=== PATIENT | female | born 1950 | race Caucasian/White ===

== ENCOUNTER 2020-02-15 14:08 | Outpatient (CLI) | payer MEDICARE, SELFPAY ==
--- NOTE | ~2020-02-15 | MM_ITS ---
EXAMINATION: MM screening marco antonio RT w anjelica HISTORY: Screening mammogram TECHNIQUE: Craniocaudal and mediolateral oblique 3-D tomosynthesis images were obtained and synthetic 2-D images were generated. CAD analysis was submitted and interpreted. COMPARISON: 01/21/2019 diagnostic right digital mammogram 01/07/2019, 10/07/2017 right digital screening mammogram examinations BREAST PARENCHYMAL COMPOSITION: There are scattered areas of fibroglandular density. FINDINGS: There is a biopsy marker; history of prior benign right breast biopsy. Status post left mas tectomy in 2003. There is no evidence of suspicious mass, calcification, or architectural distortion to suggest malignancy in either breast. There has been no suspicious interval change. IMPRESSION: 1. No mammographic evidence of malignancy. 2. Recommend routine screening mammography in one year. BI-RADS Category 1: Negative Reviewed, dictated and finalized at location A.
== END 2020-02-15 14:09 | disposition home or self-care (01) ==
LOC: ANHIMG 14:14
PROVIDERS: PCP Family Medicine; Visit Provider Obstetrics & Gynecology Gynecology
DX: Z12.31 Encounter for screening mammogram for malignant neoplasm of breast (principal)
CPT/HCPCS: 77063; 77067

== ENCOUNTER 2021-03-16 14:48 | Outpatient (CLI) | payer MEDICARE, SELFPAY ==
--- NOTE | ~2021-03-16 | DEXA_ITS ---
Bone Density Report Name: Rena Olmos Age: 70 Sex: Female Ethnicity: White Date of : 1950 Indication: postmenopausal; parental hip fracture; height loss; cancer; asthma or emphysema; hysterectomy; Referring Provider: KRISTINA WHEELER Study: Bone densitometry was performed. Exam Date: March 16, 2021 Accession number: [id number] Bone Density: Region BMD T-score Z-score Classification AP Spine (L1, L2, L3) 0.883 -1.2 0.9 Osteopenia Femoral Neck (Left) 0.604 -2.2 -0.4 Osteopenia Total Hip (Left) 0.795 -1.2 0.3 Osteopenia Total Hip Bilateral Avg 0.803 -1.2 0.4 Osteopenia Femoral Neck (Right) 0.621 -2.1 -0.2 Osteopenia Total Hip (Right) 0.810 -1.1 0.5 Osteopenia World Health Organization criteria for BMD impression classify patients as: Normal (T-score at or above -1.0), Osteopenia (T-score between -1.0 and -2.5), or Osteoporosis (T-score at or below -2.5). 10-year Fracture Risk(1): Major Osteoporotic Fracture 20% Hip Fracture 6.5% Reported Risk Factors: [place] (), Neck BMD=0.604, BMI=26.3, parental fracture (1) FRAX(R) Version 3.08. Fracture probability calculated for an untreated patient. Fracture probability may be lower if the patient has received treatment. Previous Exams: Region Exam Age BMD T-score BMD Change BMD Change Date g/cm2 vs Baseline vs Previous AP Spine(L1, L2, L3) 03/16/2021 70 0.883 -1.2 -0.238(-21.2%) -0.035(-3.8%)* 03/29/2019 68 0.917 -0.9 -0.203(-18.1%) 0.010(1.1%) 04/16/2016 65 0.908 -1.0 -0.213(-19.0%) -0.213(-19.0%) 12/07/2003 53 1.120 0.9 Total Hip(Left) 03/16/2021 70 0.795 -1.2 -0.078(-8.9%)# -0.037(-4.5%)* 03/29/2019 68 0.833 -0.9 -0.040(-4.6%)# 0.013(1.6%) 04/16/2016 65 0.820 -1.0 -0.053(-6.1%)# -0.053(-6.1%)# 12/07/2003 53 0.873 -0.6 Total Hip(Right) 03/16/2021 70 0.810 -1.1 -0.053(-6.1%)# -0.049(-5.7%)* 03/29/2019 68 0.859 -0.7 -0.004(-0.4%)# 0.068(8.6%)* 04/16/2016 65 0.791 -1.2 -0.072(-8.3%)# -0.072(-8.3%)# 12/07/2003 53 0.863 -0.7 *Denotes significance at 95% confidence level, LSC for AP Spine = 0.022 g/cm2, LSC for Total Hip = 0.027 g/cm2 Clinical Information Provided by Patient: Parent has had a hip fracture Has used the following medications: Vitamin D, Calcium Has the following medical conditions: Asthma or Emphysema, Cancer, Hysterectomy Patient maximum height was 68 Menopause Age: 52 No regular weight bearing exercise Drinks caffeinated beverages Onset of mense
--- NOTE | ~2021-03-16 | MM_ITS ---
EXAMINATION: MM screening marco antonio RT w anjelica HISTORY: Screening TECHNIQUE: Craniocaudal and mediolateral oblique 3-D tomosynthesis images were obtained and synthetic 2-D images were generated. CAD analysis was submitted and interpreted. COMPARISON: Comparison to multiple prior studies sequentially, with oldest reviewed study dated 04/16. BREAST PARENCHYMAL COMPOSITION: There are scattered areas of fibroglandular density. FINDINGS: There is no evidence of suspicious mass, calcification, or architectural distortion to sugg est malignancy in either breast. There has been no suspicious interval change. IMPRESSION: 1. No mammographic evidence of malignancy. 2. Recommend routine screening mammography in one year. BI-RADS Category 1: Negative Reviewed, dictated and finalized at location A.
== END 2021-03-16 14:49 | disposition home or self-care (01) ==
PROVIDERS: PCP Family Medicine; Visit Provider Nurse Practitioner
DX: Z12.31 Encounter for screening mammogram for malignant neoplasm of breast (principal); Z78.0 Asymptomatic menopausal state; M85.88 Other specified disorders of bone density and structure, other site; M85.852 Other specified disorders of bone density and structure, left thigh; M85.851 Other specified disorders of bone density and structure, right thigh
CPT/HCPCS: 77063; 77067; 77080

== ENCOUNTER 2021-04-11 02:39 | Day surgery (SDC) | payer MEDICARE, SELFPAY ==
[2021-03-29 14:39] VITALS: BMI 26.6
[2021-04-11 08:58] VITALS: BP 135/96; PULSE 101; RESP 21; TEMP 36.5; O2SAT 100; BMI 25.8
[2021-04-11] MEDS: LACTATED RINGERS 1,000 ML 150 ML IV CONT (09:05)
--- NOTE | 2021-04-11 09:17 | WPDGICN ---
Assessment and Plan Assessment and plan (1) Esophageal reflux: Code(s): K21.9 - Gastro-esophageal reflux disease without esophagitis Status: Acute Assessment and Plan: Patient has underlying GE reflux disease. Now has stopped ranitidine. Patient advised to start [id number] Pepcid once or twice a day. An EGD will be arranged electively as an outpatient. (2) Family history of colonic polyps: Code(s): Z83.71 - Family history of colonic polyps Status: Acute Assessment and Plan: Patient has a family history of colon polyps in her mother and uncle. Grandfather had colon cancer. Plan is for surveillance colonoscopy at this time. Consider follow-up exams in the future according to [employer] [employer] guidelines. GI Consult Note Consult date/time: 04/11/21 09:17 HPI: Rena Olmos is a 70 year old female Presents for screening colonoscopy. Last exam was in 2013 7 years ago. Patient reports that her grandfather had colon cancer. Previously reported that her mother had colon polyps and uncle had a malignant colon polyp removed. Patient now is somewhat uncertain about this 1st degree relative history. Patient states that her own weight appetite bowel movements are normal. She denies any abdominal pain. She has had no blood in her stools. She presents today for screening colonoscopy. Patient complains of throat burning for many years attributed to acid reflux. Previously well controlled on ranitidine. Upon stopping this medicine she has to take [id number] antacids many times a day to control this symptom. She denies any bleeding or dysphagia. She has no epigastric pain. She is felt to have underlying acid reflux disease. Review of Systems Review of Systems: All systems reviewed & are unremarkable except as noted in HPI and below [facility] Past Medical History Medical History (Updated 04/11/21 @ 09:20 by Vipin Carnes MD) Allergic rhinitis Esophageal reflux Fatigue GERD with esophagitis Family History Family History Mother Family history of cardiac disorder Family history of malignant neoplasm of breast in first degree relative Hypertension Sibling Family history of cardiac disorder Family history of malignant neoplasm of breast in first degree relative Grandparent Family history of malignant neoplasm of breast Other No family history of cardiovascular disease Social History Social History Smoking status: Never smoker Alcohol intake: never Living arrangements: alone Meds Home Medications and Allergies Home Medications Medication Instructions Recorded Confirmed Type calcium carbonate 300 mg (750 mg) 300 mg PO QID 05/11/20 03/29/21 History chewable tablet cholecalciferol (vitamin D3) 50 50 mcg PO DAILY 05/11/20 03/29/21 History mcg (2,000 unit) capsule multivit with 1 tablet PO DAILY 05/11/20 03/29/21 History yvcusdfs-qfhf-IU-lutein 8 mg iron-400 mcg-300 mcg tablet atorvastatin 10 mg tablet 10 mg PO DAILY #90 tablet 07/04/20 03/29/21 Rx alprazolam 0.25 mg tablet 1 mg PO TID #10 tablet 11/15/20 03/29/21 Rx fluticasone fur. 100 mcg-umeclid See Rx Instructions .ROUTE 11/15/20 03/29/21 Rx 62.5 mcg-vilant 25 mcg .COMPLEX #180 ea inhalat.powder alendronate 70 mg tablet 70 mg PO WEEKLY #12 tablet 03/21/21 03/29/21 Rx escitalopram oxalate 10 mg PO DAILY 03/29/21 03/29/21 History famotidine 40 mg PO PRN 03/29/21 03/29/21 History ipratropium-albuterol 1 puff INHALATION PRN 03/29/21 03/29/21 History loratadine [Claritin] 10 mg PO DAILY 03/29/21 03/29/21 History Allergies Allergy/AdvReac Type Severity Reaction Status Date / Time codeine Allergy Unknown Headache Verified 04/11/21 08:57 Vital Signs Vital Signs - 24 hr 04/11/21 08:58 Temperature 97.7 F Pulse Rate 101 H Respiratory Rate 21 H Blood
--- NOTE | 2021-04-11 09:26 | WPDANESEPPF ---
Anes - Initial Pre Proc Eval Procedure: Operation Date: 04/11/21 09:45 Proposed Procedures p Screening Colonoscopy - Vipin Carnes MD Date/Time: 04/11/21 09:26 Surgeon: Vipin Carnes MD Pre Op Diagnosis: family hx of colon polyps Patient Data Age: 70 Gender: F Height: 1.7 m Weight: 74.8 kg Last Vital Signs Temp 36.5 C 04/11/21 08:58 Pulse 101 H 04/11/21 08:58 Resp 21 H 04/11/21 08:58 BP 135/96 H 04/11/21 08:58 Pulse Ox 100 04/11/21 08:58 Allergies Allergy/AdvReac Type Severity Reaction Status Date / Time codeine Allergy Unknown Headache Verified 04/11/21 08:57 Home Medications Medication Instructions Recorded Confirmed Type calcium carbonate 300 mg (750 mg) 300 mg PO QID 05/11/20 03/29/21 History chewable tablet cholecalciferol (vitamin D3) 50 50 mcg PO DAILY 05/11/20 03/29/21 History mcg (2,000 unit) capsule multivit with 1 tablet PO DAILY 05/11/20 03/29/21 History evgddjvl-akzm-LV-lutein 8 mg iron-400 mcg-300 mcg tablet atorvastatin 10 mg tablet 10 mg PO DAILY #90 tablet 07/04/20 03/29/21 Rx alprazolam 0.25 mg tablet 1 mg PO TID #10 tablet 11/15/20 03/29/21 Rx fluticasone fur. 100 mcg-umeclid See Rx Instructions .ROUTE 11/15/20 03/29/21 Rx 62.5 mcg-vilant 25 mcg .COMPLEX #180 ea inhalat.powder alendronate 70 mg tablet 70 mg PO WEEKLY #12 tablet 03/21/21 03/29/21 Rx escitalopram oxalate 10 mg PO DAILY 03/29/21 03/29/21 History famotidine 40 mg PO PRN 03/29/21 03/29/21 History ipratropium-albuterol 1 puff INHALATION PRN 03/29/21 03/29/21 History loratadine [Claritin] 10 mg PO DAILY 03/29/21 03/29/21 History Patient hx anesthesia problems: none Family hx anesthesia problems: none PMFSH Past Medical History Medical History Allergic rhinitis Esophageal reflux Fatigue GERD with esophagitis Family History Family History Mother Family history of cardiac disorder Family history of malignant neoplasm of breast in first degree relative Hypertension Sibling Family history of cardiac disorder Family history of malignant neoplasm of breast in first degree relative Grandparent Family history of malignant neoplasm of breast Other No family history of cardiovascular disease Social History Social History Smoking status: Never smoker Alcohol intake: never Living arrangements: alone Anes - Eval Final PreProcedure Day of Procedure 04/11/21 09:26 Patient weight: overweight Heart: regular rate and rhythm Lungs: clear to auscultation Airway: Mallampati scale class II Neurological: alert and oriented Last oral intake: >/= 8 hours ASA classification: III Emergent: no Anesthetic plan: proceed Anesthesia type and monitoring: general and standard monitoring Informed Consent: The patient's anesthetic plan and its attendant risks and benefits were discussed with the patient/family/POA. Questions were solicited and answers provided to the satisfaction of the patient/family/POA.
[2021-04-11 10:00] VITALS: BP 102/57; PULSE 81; RESP 30; O2SAT 98
[2021-04-11 10:10] VITALS: BP 107/64; PULSE 85; RESP 19; O2SAT 98
[2021-04-11 10:20] VITALS: BP 113/72; PULSE 88; RESP 17; O2SAT 99
== END 2021-04-11 10:40 | disposition home or self-care (01) ==
PROVIDERS: PCP Family Medicine; Visit Provider Internal Medicine Gastroenterology
PROC: 0DJD8ZZ Inspection of Lower Intestinal Tract, Via Natural or Artificial Opening Endoscopic (ICD-10-PCS; CPT 45378; principal; 2021-04-11 09:45)
DX: Z12.11 Encounter for screening for malignant neoplasm of colon (principal); Z83.71 Family history of colonic polyps; K64.8 Other hemorrhoids; K63.5 Polyp of colon; R53.83 Other fatigue; K21.00 Gastro-esophageal reflux disease with esophagitis, without bleeding
CPT/HCPCS: 45385; 88305; J2704; J7120

== ENCOUNTER 2021-06-06 01:36 | Day surgery (SDC) | payer MEDICARE, SELFPAY ==
[2021-05-21 13:34] VITALS: BMI 26.6
--- NOTE | 2021-06-06 09:13 | WPDANESEPPF ---
Anes - Initial Pre Proc Eval Procedure: Operation Date: 06/06/21 11:00 Proposed Procedures p Esophagogastroduodenoscopy - Vipin Carnes MD Date/Time: 06/06/21 09:13 Surgeon: Vipin Carnes MD Pre Op Diagnosis: GERD Patient Data Age: 71 Gender: F Height: 1.7 m Weight: 77.2 kg Allergies Allergy/AdvReac Type Severity Reaction Status Date / Time codeine Allergy Unknown Headache Verified 05/21/21 13:28 Home Medications Medication Instructions Recorded Confirmed Type calcium carbonate 300 mg (750 mg) 300 mg PO QID 05/11/20 05/21/21 History chewable tablet cholecalciferol (vitamin D3) 50 50 mcg PO DAILY 05/11/20 05/21/21 History mcg (2,000 unit) capsule multivit with 1 tablet PO DAILY 05/11/20 05/21/21 History ibozylaz-lets-JB-lutein 8 mg iron-400 mcg-300 mcg tablet alprazolam 0.25 mg tablet 1 mg PO TID #10 tablet 11/15/20 05/21/21 Rx alendronate 70 mg tablet 70 mg PO WEEKLY #12 tablet 03/21/21 05/21/21 Rx escitalopram oxalate 10 mg PO DAILY 03/29/21 05/21/21 History famotidine 40 mg PO PRN 03/29/21 05/21/21 History ipratropium-albuterol 1 puff INHALATION PRN 03/29/21 05/21/21 History loratadine [Claritin] 10 mg PO DAILY 03/29/21 05/21/21 History atorvastatin 10 mg tablet See Rx Instructions .ROUTE 04/20/21 05/21/21 Rx .COMPLEX #90 tablet fluticasone fur. 100 mcg-umeclid See Rx Instructions .ROUTE 04/24/21 05/21/21 Rx 62.5 mcg-vilant 25 mcg .COMPLEX #180 ea inhalat.powder Patient hx anesthesia problems: none Family hx anesthesia problems: none Results Review: All pre-operative results and documents have been reviewed as part of the pre-operative evaluation. [facility] Past Medical History Medical History (Updated 06/06/21 @ 09:14 by Jan Alberto MD) Allergic rhinitis Anxiety and depression COPD mixed type Esophageal reflux Essential hypertension Fatigue GERD with esophagitis GERD without esophagitis Mixed hyperlipidemia Obstructive sleep apnea Osteopenia 7.28.21 started fosamax Overweight Family History Family History Mother Family history of cardiac disorder Family history of malignant neoplasm of breast in first degree relative Hypertension Sibling Family history of cardiac disorder Family history of malignant neoplasm of breast in first degree relative Grandparent Family history of malignant neoplasm of breast Other No family history of cardiovascular disease Social History Social History Smoking status: Never smoker Alcohol intake: never Living arrangements: alone Spiritual care concerns: No Anes - Eval Final PreProcedure Day of Procedure 06/06/21 09:13 Patient weight: overweight Heart: regular rate and rhythm Lungs: clear to auscultation and normal air movement Airway: Mallampati scale class II Neurological: alert and oriented Last oral intake: >/= 8 hours ASA classification: III Emergent: no Anesthetic plan: proceed Anesthesia type and monitoring: general GIVS Results Review: All pre-operative results and documents have been reviewed as part of the pre-operative evaluation. Informed Consent: The patient's anesthetic plan and its attendant risks and benefits were discussed with the patient/family/POA. Questions were solicited and answers provided to the satisfaction of the patient/family/POA.
[2021-06-06 09:51] VITALS: BP 132/76; PULSE 88; RESP 18; TEMP 36.1; O2SAT 100
--- NOTE | 2021-06-06 09:55 | WPDGICN ---
Assessment and Plan Assessment and plan (1) GERD without esophagitis: Code(s): K21.9 - Gastro-esophageal reflux disease without esophagitis Status: Acute Assessment and Plan: Patient has a history of substernal burning consistent with acid reflux. Symptoms. A breakthrough on Pepcid. Plan is for EGD to assess more thoroughly. She has atypical symptom of right throat pain associated with eating that [place] in is improved with Tums. Further recommendations will be given after endoscopy. GI Consult Note Consult date/time: 06/06/21 09:55 HPI: Rena Olmos is a 71 year old female Presents for EGD. Patient has a history of heartburn. Complains of substernal burning. She recently discontinued ranitidine when it was taken off the market and has been taking Pepcid. She states after eating often will have burning in the upper chest. Sometimes burning on the right side of her neck and year. This improves with supplementing medications with Tums. Because of chronic heartburn and GE reflux an EGD is requested. Patient admits to occasional difficulty swallowing solid foods which will catch in her chest. Review of Systems Review of Systems: All systems reviewed & are unremarkable except as noted in HPI and below PMFSH Past Medical History Medical History (Updated 06/06/21 @ 09:14 by Jan Alberto MD) Allergic rhinitis Anxiety and depression COPD mixed type Esophageal reflux Essential hypertension Fatigue GERD with esophagitis GERD without esophagitis Mixed hyperlipidemia Obstructive sleep apnea Osteopenia 7.28.21 started fosamax Overweight Family History Family History Mother Family history of cardiac disorder Family history of malignant neoplasm of breast in first degree relative Hypertension Sibling Family history of cardiac disorder Family history of malignant neoplasm of breast in first degree relative Grandparent Family history of malignant neoplasm of breast Other No family history of cardiovascular disease Social History Social History Smoking status: Never smoker Alcohol intake: never Living arrangements: alone Spiritual care concerns: No Meds Home Medications and Allergies Home Medications Medication Instructions Recorded Confirmed Type calcium carbonate 300 mg (750 mg) 300 mg PO QID 05/11/20 05/21/21 History chewable tablet cholecalciferol (vitamin D3) 50 50 mcg PO DAILY 05/11/20 05/21/21 History mcg (2,000 unit) capsule multivit with 1 tablet PO DAILY 05/11/20 05/21/21 History zmbimrqb-zdss-CB-lutein 8 mg iron-400 mcg-300 mcg tablet alprazolam 0.25 mg tablet 1 mg PO TID #10 tablet 11/15/20 06/06/21 Rx alendronate 70 mg tablet 70 mg PO WEEKLY #12 tablet 03/21/21 05/21/21 Rx escitalopram oxalate 10 mg PO DAILY 03/29/21 05/21/21 History famotidine 40 mg PO PRN 03/29/21 05/21/21 History ipratropium-albuterol 1 puff INHALATION PRN 03/29/21 05/21/21 History loratadine [Claritin] 10 mg PO DAILY 03/29/21 05/21/21 History atorvastatin 10 mg tablet See Rx Instructions .ROUTE 04/20/21 05/21/21 Rx .COMPLEX #90 tablet fluticasone fur. 100 mcg-umeclid See Rx Instructions .ROUTE 04/24/21 05/21/21 Rx 62.5 mcg-vilant 25 mcg .COMPLEX #180 ea inhalat.powder Allergies Allergy/AdvReac Type Severity Reaction Status Date / Time codeine Allergy Unknown Headache Verified 05/21/21 13:28 Vital Signs Vital Signs - 24 hr 06/06/21 09:51 Temperature 97 F L Pulse Rate 88 Respiratory Rate 18 Blood Pressure 132/76 Pulse Oximetry 100 Exam Narrative: Physical exam reveals patient to be alert. Vital signs stable. HEENT exam is unremarkable. Patient is anicteric. Lungs are clear to auscultation and percussion. Heart is without murmur or extra sounds. Abdominal exam bowel sounds are present soft nontender with no organomegaly. D
[2021-06-06] MEDS: LACTATED RINGERS 1,000 ML 150 ML IV CONT (10:06)
[2021-06-06 10:41] VITALS: BP 103/61; PULSE 81; RESP 16; O2SAT 97
[2021-06-06 10:51] VITALS: BP 116/61; PULSE 75; RESP 17; O2SAT 98
[2021-06-06 11:01] VITALS: BP 126/78; PULSE 78; RESP 18; O2SAT 99
== END 2021-06-06 11:22 | disposition home or self-care (01) ==
PROVIDERS: PCP Family Medicine; Visit Provider Internal Medicine Gastroenterology
PROC: 0DJ08ZZ Inspection of Upper Intestinal Tract, Via Natural or Artificial Opening Endoscopic (ICD-10-PCS; CPT 43235; principal; 2021-06-06 11:00)
DX: K21.00 Gastro-esophageal reflux disease with esophagitis, without bleeding (principal); K44.9 Diaphragmatic hernia without obstruction or gangrene; K22.2 Esophageal obstruction; I10 Essential (primary) hypertension; E78.2 Mixed hyperlipidemia; J44.9 Chronic obstructive pulmonary disease, unspecified; F41.8 Other specified anxiety disorders; G47.33 Obstructive sleep apnea (adult) (pediatric); M85.80 Other specified disorders of bone density and structure, unspecified site
CPT/HCPCS: 43450; 43235; J2704; J7120

== ENCOUNTER 2022-06-04 13:03 | Outpatient (CLI) | payer MEDICARE, SELFPAY ==
--- NOTE | ~2022-06-04 | US_ITS ---
EXAMINATION: US abdomen limited DATE: 06/04/2022 13:33 INDICATION: Epigastric abdominal pain. TECHNIQUE: Multiple grayscale and Doppler ultrasound images of the abdomen were obtained. COMPARISON: None FINDINGS: The visualized portions of the head and body of the pancreas are normal. The liver is fco l without focal lesion. There is normal flow in main portal vein. The gallbladder is normal in size a nd contains gallstones. No gallbladder wall thickening or sonographic Rouse sign. The common duct is normal and measures 3 mm. IMPRESSION: 1. Cholelithiasis. No evidence of acute cholecystitis. Reviewed, dictated and finalized at location A.
== END 2022-06-04 13:04 | disposition home or self-care (01) ==
LOC: ANHIMG 13:04
PROVIDERS: PCP Family Medicine; Visit Provider Physician Assistant
DX: R10.13 Epigastric pain (principal); K80.20 Calculus of gallbladder without cholecystitis without obstruction
CPT/HCPCS: 76705

== ENCOUNTER 2022-06-17 12:44 | Outpatient (CLI) | payer MEDICARE, SELFPAY ==
[2022-06-17 14:00] LABS: Basophils Percent Auto 0.8 % (0.2-1.2); Eosinophils Percent Auto 0.8 % (0-4.4); Hematocrit 43.2 % (37.0-47.0); Hemoglobin 14.2 g/dL (12.0-15.0); Immature Granulocyte Absolute 0.01 K/mm3 (0.00-0.031); Immature Granulocyte Percent A 0.2 % (0-0.5); Lymphocytes Absolute Auto 1.05 K/mm3 (0.9-3.2); Lymphocytes Percent Auto 22.2 % (18.3-44.2); Mean Corpuscular HGB Conc 32.9 g/dl (32-36); Mean Corpuscular Volume 88.2 fl (80-100); Mean Platelet Volume 9.6 fl (7.4-10.4); Monocytes Absolute Auto 0.4 K/mm3 (0.1-0.6); Monocytes Percent Auto 8.5 % (2.6-8.5); Neutrophils Absolute Auto 3.2 K/mm3 (1.3-6.7); Neutrophils Percent Auto 67.5 % (45.5-73.1); Platelet Count Result 207 k/mm3 (150-375); Red Cell Distribution Width 13.1 % (11.5-14.5); White Blood Count 4.7 K/mm3 (4.5-10.0)
[2022-06-17 14:15] LABS: Alanine Aminotransferase 39 U/L (6-35); Albumin Level 4.4 g/dL (3.5-5.1); Alkaline Phosphatase 48 U/L (38-126); Amylase 74 U/L (30-110); Anion Gap 10 mmol/L (8-16); Aspartate Amino Transferase 45 U/L (14-36); Bilirubin,Total 0.9 mg/dL (0.2-1.3); Blood Urea Nitrogen 18 mg/dL (7-17); Calcium 9.1 mg/dL (8.4-10.2); Carbon Dioxide 26 mmol/L (22-30); Chloride 104 mmol/L (98-107); Estimated Glomerular Filt Rate 55; Glucose 92 mg/dL (65-110); Lipase 134 U/L (23-300); Potassium 4.1 mmol/L (3.4-5.0); Sodium 140 mmol/L (137-145)
== END 2022-06-17 12:45 | disposition home or self-care (01) ==
LOC: ANHSURGERY 12:51
PROVIDERS: PCP Family Medicine; Visit Provider Surgery
DX: K80.10 Calculus of gallbladder with chronic cholecystitis without obstruction (principal)
CPT/HCPCS: 36415; 80053; 82150; 83690; 85025

== ENCOUNTER 2022-07-02 10:00 | Outpatient (CLI) | payer MEDICARE, SELFPAY ==
--- NOTE | 2022-07-02 10:07 | EST_ITS ---
Patient Info Name: Rena Olmos Age: 72 years : 1950 Gender: Female Ht: 67 in Wt: 165 lbs BSA: 1.89 m2 Exam Date: 07/02/2022 10:53 AM Exam Location: [facility] Patient Status: Outpatient Admit Date: 07/02/2022 Staff Ordering Physician: Cuate Gamino PA-C Grinder Operator External Tool: Hank Rouse RDCS, RT Attending Provider: Cuate Gamino PA-C Referring Physician: Stevenson RIVERA; Exercise Technologist: Kavita Irving RDCS Exercise Physician: Urbano Gasca DO Exam Type: CA stress echo Study Info Indications R07.9 - Chest pain, unspecified Treadmill exercise stress echocardiogram is performed. Summary 1. 1. Negative [place]ar exercise stress test for ischemic ST changes by ECG criteria. 2. 2. Reduced functional capacity, achieving 6.8 METs of workload. 3. 3. Appropriate HR response to exercise. 4. 4. Appropriate HR recovery at 1 minute post exercise. 5. 5. Negative stress echocardiogram for ischemia by wall motion analysis. 6. 6. Patient informed of the above results. Stress Echo Findings Left Ventricle Appropriate increase in LV endocardial thickening with systole. Appropriate augmentation of contractility with systole. No wall motion abnormality. Left Ventricle Normal LV systolic function, no wall motion abnormality. Protocol: [place] Stress ECG Details Stage: REST Duration (min): 0 min : 50 sec Speed (mph): 0.0 Grade (%): 0 HR (bpm): 72 SBP (mmHg): 136 DBP (mmHg): 86 METS: --- Stage: REST Duration (min): 7 min : 29 sec Speed (mph): 0.0 Grade (%): 0 HR (bpm): 90 SBP (mmHg): 136 DBP (mmHg): 86 METS: --- Stage: STAGE 1 Duration (min): 1 min : 0 sec Speed (mph): 1.7 Grade (%): 10 HR (bpm): 107 SBP (mmHg): 136 DBP (mmHg): 86 METS: --- Stage: STAGE 1 Duration (min): 2 min : 0 sec Speed (mph): 1.7 Grade (%): 10 HR (bpm): 125 SBP (mmHg): 136 DBP (mmHg): 86 METS: --- Stage: STAGE 1 Duration (min): 3 min : 0 sec Speed (mph): 1.7 Grade (%): 10 HR (bpm): 134 SBP (mmHg): 165 DBP (mmHg): 80 METS: --- Stage: STAGE 2 Duration (min): 1 min : 0 sec Speed (mph): 2.5 Grade (%): 12 HR (bpm): 145 SBP (mmHg): 165 DBP (mmHg): 80 METS: --- Stage: STAGE 2 Duration (min): 1 min : 16 sec Speed (mph): 0.0 Grade (%): 0 HR (bpm): 145 SBP (mmHg): 165 DBP (mmHg): 80 METS: --- Stage: RECOVERY Duration (min): 0 min : 43 sec Speed (mph): 0.0 Grade (%): 0 HR (bpm): 126 SBP (mmHg): 165 DBP (mmHg): 84 METS: --- Stage: RECOVERY Duration (min): 1 min : 43 sec Speed (mph): 0.0 Grade (%): 0 HR (bpm): 99 SBP (mmHg): 165 DBP (mmHg): 84 METS: --- Stage: RECOVERY Duration (min): 2 min : 43 sec Speed (mph): 0.0 Grade (%): 0 HR (bpm): 86 SBP (mmHg): 139 DBP (mmHg): 77 METS: --- Stage: RECOVERY Duration (min): 3 min : 8 sec Speed (mph): 0.0 Grade (
== END 2022-07-02 10:01 | disposition home or self-care (01) ==
LOC: ANHCARD 10:03
PROVIDERS: PCP Family Medicine; Visit Provider Physician Assistant
DX: R07.9 Chest pain, unspecified (principal)
CPT/HCPCS: 93351

== ENCOUNTER 2022-07-15 10:21 | Outpatient (CLI) | payer MEDICARE, SELFPAY ==
[2022-07-15 11:31] LABS: Alanine Aminotransferase 28 U/L (6-35); Albumin Level 4.3 g/dL (3.5-5.1); Alkaline Phosphatase 44 U/L (38-126); Amylase 71 U/L (30-110); Aspartate Amino Transferase 37 U/L (14-36); Bilirubin,Total 0.5 mg/dL (0.2-1.3); Lipase 103 U/L (23-300)
== END 2022-07-15 10:22 | disposition home or self-care (01) ==
LOC: ANHSURGERY 10:24
PROVIDERS: PCP Family Medicine; Visit Provider Surgery
DX: K80.20 Calculus of gallbladder without cholecystitis without obstruction (principal); Z01.818 Encounter for other preprocedural examination
CPT/HCPCS: 36415; 80076; 82150; 83690

== ENCOUNTER 2022-07-23 01:21 | Day surgery (SDC) | payer MEDICARE, SELFPAY ==
[2022-06-13 14:01] VITALS: BMI 26.6
--- NOTE | 2022-06-13 14:16 | PC.NURSE ---
PRE-OP INSTRUCTIONS, PLEASE READ CAREFULLY Report to the Outpatient Waiting Room, entrance under the green pavilion located off [facility], at time _1130_ on date __. Planned Procedure Time: _1:30 PM_. Time changes happen often and if your time is changed the preop area will call you the afternoon before. - You and your visitor will be asked to self-screen and do not enter if you have any COVID symptoms. - We encourage only one visitor and NO visitors under age 16 are allowed at this time. Your visitor will receive communication by the phone number that is given day of service. - The patient visitor is requested to social distance or may leave the building when not with patient due to restrictions. - A mask is required within the hospital. Patients may have clear liquids (water, carbonated beverages, clear teas, apple juice) until 3 hours prior to surgery (1030 AM) with a maximum of 20 ounces. - No food from midnight until time of surgery Take the following medications with a SIP of water the morning of surgery: _ALPRAZOLAM, VENTOLIN INHALER IF NEEDED_ Medications to discontinue per ANESTHESIA - MULTIVITAMIN 3 DAYS PRIOR TO SURGERY, Date to take last dose 06/15/22_ PT STATES ALREADY STOPPING ASPIRIN - LAST DOSE TAKEN 06/09/22 Please no make-up, nail korean, hairspray, perfume, deodorant, or body powder the day of surgery. No jewelry (including any body piercings) or valuables the day of surgery, leave them at home. Please take a shower or bath the night before, or the morning of, surgery with an antibacterial soap. Wear comfortable, loose fitting clothing. - Jewelry must be removed prior to entering the operating room. Rings and piercings that are not removed may be cut off. - The hospital will not accept responsibility for valuables. - Please leave all valuables, including medications, at home the day of surgery. If you are going home after surgery, a licensed rolloff truck driver must drive you home. - NO public transportation without another adult. - We recommend that an adult stay with you for 24 hours following discharge. - We also recommend that you do not drive, make important decision, drink alcoholic beverages, or take any drugs that were not prescribed by your health care provider for at least 24 hours after your discharge time. Follow any additional instructions given to you from your surgeon. HIBICLENS SHOWER AM OF SURGERY If you or anyone in your household have experienced Covid symptoms in the past week, please notify your surgeon or the nurse liaison at the phone number below for possible testing. Telephone instructions given to ___PT and asked if any additional questions and then verbalized understanding. Patient advised to call surgeon office or pre surgery nurse liaison [phone] if any additional questions.
[2022-07-12 14:41] VITALS: BMI 26.6
--- NOTE | 2022-07-12 14:54 | PC.NURSE ---
PRE-OP INSTRUCTIONS, PLEASE READ CAREFULLY Report to the Outpatient Waiting Room, entrance under the green pavilion located off [facility], at time _1000_ on date _07/23/22_. Planned Procedure Time: _1200_. Time changes happen often and if your time is changed the preop area will call you the afternoon before. - You and your visitor will be asked to self-screen and do not enter if you have any COVID symptoms. - Only one visitor is requested with a max of two and NO children visitors are allowed at this time. - The patient visitor may be requested to leave or wait in car when not with patient due to distancing restrictions. - A mask is optional within the hospital. Patients may have clear liquids (water, carbonated beverages, clear teas, apple juice) until 3 hours prior to surgery (0900 AM) with a maximum of 20 ounces. - No food from midnight until time of surgery Take the following medications with a SIP of water the morning of surgery: _ALPRAZOLAM, VENTOLIN INHALER IF NEEDED_ Medications to discontinue per ANESTHESIA - _MULTIVITAMIN 3 DAYS PRIOR TO SURGERY, Date to take last dose 07/19/22_ (PT STATES STOPPING ASPIRIN 06/09/22 & NOT RESTARTING WHEN SURGERY PREVIOUSLY CANCELLED) Please no make-up, nail algerian, hairspray, perfume, deodorant, or body powder the day of surgery. No jewelry (including any body piercings) or valuables the day of surgery, leave them at home. Please take a shower or bath the night before, or the morning of, surgery with an antibacterial soap. Wear comfortable, loose fitting clothing. - Jewelry must be removed prior to entering the operating room. Rings and piercings that are not removed may be cut off. - The hospital will not accept responsibility for valuables. - Please leave all valuables, including medications, at home the day of surgery. If you are going home after surgery, a licensed road driver must drive you home. - NO public transportation without another adult if you receive anesthesia. - We recommend that an adult stay with you for 24 hours following discharge. - We also recommend that you do not drive, make important decision, drink alcoholic beverages, or take any drugs that were not prescribed by your health care provider for at least 24 hours after your discharge time. Follow any additional instructions given to you from your surgeon. HIBICLENS SHOWER AM OF SURGERY If you or anyone in your household have experienced Covid symptoms in the past week, please notify your surgeon or the nurse liaison at the phone number below for possible testing. Telephone instructions given to ____PT and asked if any additional questions and then verbalized understanding. Patient advised to call surgeon office or pre surgery nurse liaison [phone] if any additional questions.
[2022-07-23] VITALS (11 sets, daily range): BP systolic 122–139; BP diastolic 62–76; PULSE 66–99; RESP 12–16; TEMP 36.6–36.9; O2SAT 96–100
--- NOTE | 2022-07-23 07:07 | PM.HPGS ---
History of Present Illness History of Present Illness Consent: Risks, benefits, and alternatives Of a laparoscopic cholecystectomy, possible intraoperative cholangiogram, possible open cholecystectomy have been discussed and questions answered. Patient agrees to proceed with procedure. Chief complaint: chronic cholecystitis with cholelithiasis Narrative: Rena Olmos is a 72 year old female that recently presented to the office at the request of Cuate Gamino PA-C for an evaluation of epigastric pain and heartburn. Patient reports that her symptoms started about two months ago and she seems to just have random episodes of this pain that wake her from her sleep. She reports that when she has an episode of pain it is sharp and radiates throughout her upper abdomen. She reports the episodes last about an hour to an hour and a half. She knows that with one of the episodes she had a salad for dinner. She reports that she had used an oil dressing. She did not take any thing for the pain while she was having the episodes. She does not eat fried foods but she does admits she eats fatty foods. She reports she has not had an episodes since her ultrasound. Patient had an abdominal ultrasound on 06/04/22 that showed cholelithiasis. No evidence of acute cholecystitis. Patient has a history of left breast cancer where she had a mastectomy. Only other surgical history includes a hysterectomy in 2019.? She does take daily medication for COPD, she denies a smoking history. She does not see a licensed audiologist, she reports that her COPD is controlled and is treated by her PCP. Review of Systems Constitutional: Comments: Review of Systems Const All systems reviewed & are unremarkable except as noted in HPI and below Denies frequent falls, Denies headache(s) and Reports snoring Eyes Denies blurry vision, Denies itchy eyes, Denies photophobia and Denies spots in vision ENT Reports Normal hearing present, Denies headache(s) and Reports sinus pressure Card Reports dyspnea Resp Reports dyspnea and Reports snoring, mild COPD, and sleep apnea GI Reports constipation and Reports heartburn, history of GERD. Musc Denies abnormal gait and Denies back pain Skin/ Breast Denies new lesions, Denies rash and Denies wounds. Has history of previous left breast cancer status post left mastectomy Neuro Reports Normal hearing present, Denies abnormal gait, Denies confusion, Denies frequent falls, Denies headache(s), Denies convulsions and Denies seizure-like activity Psych Denies confusion and Denies depression Endo Denies cold intolerance and Denies heat intolerance Leonard/ Lymph Denies easy bleeding, Denies easy bruising and Denies lymphadenopathy Aller/ Immun Denies itchy eyes and Reports seasonal rhinorrhea PMFSH Past Medical History Medical History Allergic rhinitis Anxiety and depression COPD mixed type Essential hypertension Fatigue GERD with esophagitis GERD without esophagitis Mixed hyperlipidemia Obstructive sleep apnea Osteopenia 7.28.21 started fosamax Overweight Surgical History Surgical History H/O total mastectomy of right breast History of hysterectomy Family History Family History Mother Family history of cardiac disorder Family history of malignant neoplasm of breast in first degree relative Hypertension Sibling Family history of cardiac disorder Family history of malignant neoplasm of breast in first degree relative Grandparent Family history of malignant neoplasm of breast Other No family history of cardiovascular disease Social History Social History Smoking status: Never smoker Second hand tobacco smoke exposure: No Alcohol intake: never Substance use: never Substance use type: does not use Living
[2022-07-23] MEDS: ACETAMINOPHEN 500 MG TABLET 1000 MG PO (10:04)
[2022-07-23] MEDS: LACTATED RINGERS 1,000 ML 30 ML IV CONT ×3 (10:44→14:50)
[2022-07-23] MEDS: KETOROLAC 15 MG/ML VIAL (*BKC) IV PUSH (10:46)
--- NOTE | 2022-07-23 12:03 | WPDANESEPPF ---
Anes - Initial Pre Proc Eval Procedure: Operation Date: 07/23/22 12:00 Proposed Procedures p Laparoscopic Cholecystectomy, Possible Intraoperative Cholangiogram, Possible Open - Justyn Crump MD Date/Time: 07/23/22 12:03 Surgeon: Justyn Crump MD Pre Op Diagnosis: chronic cholecystitis with cholelithiasis Patient Data Age: 72 Gender: F Height: 1.7 m Weight: 74.2 kg Last Vital Signs Temp 36.6 C 07/23/22 10:15 Pulse 82 07/23/22 10:15 Resp 16 07/23/22 10:15 BP 136/76 07/23/22 10:15 Pulse Ox 98 07/23/22 10:15 O2 Del Method Room Air 07/23/22 10:15 Allergies Allergy/AdvReac Type Severity Reaction Status Date / Time omeprazole AdvReac Intermediate diarrhea Verified 07/23/22 09:59 codeine AdvReac Unknown Headache Verified 07/23/22 09:59 Home Medications Medication Instructions Recorded Confirmed Type calcium carbonate 300 mg (750 mg) 300 mg PO QID 05/11/20 07/23/22 History chewable tablet (Tums) cholecalciferol (vitamin D3) 50 50 mcg PO DAILY 05/11/20 07/23/22 History mcg (2,000 unit) capsule multivit with 1 tablet PO DAILY 05/11/20 07/23/22 History idrlazco-uhtr-HU-lutein 8 mg iron-400 mcg-300 mcg tablet (Centrum Silver Women) loratadine 10 mg tablet (Claritin) 10 mg PO DAILY 03/29/21 07/23/22 History atorvastatin 10 mg tablet See Rx Instructions .Route 08/02/21 07/23/22 Rx .COMPLEX #90 tabs albuterol sulfate 90 mcg/actuation 2 puff inhalation Q4H PRN 09/21/21 07/23/22 Rx aerosol inhaler (Ventolin HFA) shortness of breath or wheezing #6.7 grams escitalopram oxalate 10 mg tablet 10 mg PO DAILY #90 tabs 09/21/21 07/23/22 Rx alendronate 70 mg tablet See Rx Instructions .Route 05/02/22 07/23/22 Rx .COMPLEX #12 tabs alprazolam 0.25 mg tablet 0.25 mg PO DAILY PRN anxiety #10 05/14/22 07/23/22 Rx tabs aspirin 500 mg tablet 500 mg PO DAILY PRN Pain 05/14/22 07/23/22 History guaifenesin 600 mg tablet, 600 mg PO Q12H PRN Congestion 05/14/22 07/23/22 History extended release 12 hr (Mucinex) fluticasone fur. 100 mcg-umeclid See Rx Instructions .Route 05/30/22 07/23/22 Rx 62.5 mcg-vilant 25 mcg .COMPLEX #180 blisters inhalat.powder (Trelegy Ellipta) Patient hx anesthesia problems: none Family hx anesthesia problems: none Results Review: All pre-operative results and documents have been reviewed as part of the pre-operative evaluation. [facility] Past Medical History Medical History Allergic rhinitis Anxiety and depression COPD mixed type Essential hypertension Fatigue GERD with esophagitis GERD without esophagitis Mixed hyperlipidemia Obstructive sleep apnea Osteopenia 7.28.21 started fosamax Overweight Surgical History Surgical History H/O total mastectomy of right breast History of hysterectomy Family History Family History Mother Family history of cardiac disorder Family history of malignant neoplasm of breast in first degree relative Hypertension Sibling Family history of cardiac disorder Family history of malignant neoplasm of breast in first degree relative Grandparent Family history of malignant neoplasm of breast Other No family history of cardiovascular disease Social History Social History Smoking status: Never smoker Second hand tobacco smoke exposure: No Alcohol intake: never Substance use: never Substance use type: does not use Living arrangements: alone Spiritual care concerns: No Anes - Eval Final PreProcedure Day of Procedure 07/23/22 12:03 Patient weight: normal Heart: regular rate and rhythm Lungs: clear to auscultation and normal air movement Airway: Mallampati scale class II Neurological: alert and oriented Last oral intake: >/= 8 hours ASA classif
[2022-07-23] MEDS: ceFAZolin 2 GM/D5W 50 ML 2 GM/50 ML BAG IVPB (12:13)
--- NOTE | 2022-07-23 14:40 | W.PM.PROC2 ---
Procedure Note - Detailed Date of Procedure 07/23/22 Pre-op Diagnosis 1. chronic cholecystitis with cholelithiasis 2. Skin lesions of the abdomen Post-op Diagnosis Same Procedure Performed Laproscopic Cholecystectomy Surgeon Justyn Crump MD Instructor Ballroom Dancing Meagan HAWKINS.OR first sampler Anesthesia General Indications Patient has been having intermittent right upper quadrant pain. An ultrasound showed gallstones without acute cholecystitis. (see H&P for further details). Findings 1. Dark flat irregular nevus epigastrium 2. Suspected hemangioma at port site 3. Elongated gallbladder with stones without obvious acute inflammation. Description of Procedure Patient was seen preoperatively in the holding area and risks, benefits and alternatives confirmed. Patient was taken to the operating room and general anesthesia was induced. A time out was then preformed with the surgery team confirming patient and site of surgery. The abdomen was prepped and draped in the usual sterile fashion. Incision was made just below the umbilicus with an 11 blade knife. I placed 2 stay sutures of O- Vicryl on either side of the mid-line fascia beneath the umbilicus and was then able to slide in the Davison cannula through the fascial defect into the peritoneum. First under low flow and then under high flow the abdomen was insufflated with carbon dioxide never exceeding a pressure of 14. Three 5 mm trocars were then introduced under direct vision. At the sites where I planned to place the 5 mm trocars in the epigastrium and in the mid right upper quadrant there were skin lesions which the patient had preoperatively asked me to remove if they were at the sites where ports would be needed. Therefore, elliptical excision with a 15 blade knife of an epigastric apparent nevus was completed. Separately in the mid right upper quadrant elliptical excision transversely of a red skin lesion suspected to be a hemangioma was also completed. Trocars were then placed through these incisions. The following trocars were introduced under direct vision: a 5 mm in the epigastrium and two 5 mm trocars along the right costal margin laterally in the subcostal area. There were not any adhesions to the underside of the gallbladder. I then carefully used the L-shaped cautery and the [place] dissector to dissect out the triangle of Calot. I then was able to dissect out both the cystic duct and cystic artery and identify a window of safety. The gall bladder was grasped and the cystic duct and artery were dissected free and clipped with an 5 mm endo-clip call center supervisor. The cystic duct and artery were clipped with use of 2 clips on the patient's side 1 on the gallbladder side utilizing a 5 mm endoclip-call center supervisor. The cystic duct was then transected. The cystic artery was also transected at this point. The gall bladder was removed using electrocautery and then removed from the abdomen using an endobag. Has I was dissecting up the lateral side of the gallbladder we developed some bleeding from the liver parenchyma in that area. This was cauterized several times but still has significant bleeding so therefore pressure was applied to it for a while while we removed the gallbladder. When we looked back it appeared that the bleeding had stopped but I still put a small piece of Surgicel right in the area of the gallbladder bed where the bleeding had been. I suctioned away the rest of the blood clot and bloody fluid after irrigating in the right upper quadrant there was minimal blood left behind at the time of closure. The GB in the endobag was able to be removed without a lot of tension through the umbilical incision site. There was at least 1 small stone palpable within the gallbladder after removal. The trocars were removed visualizing hemostasis and the remaining gas evacuated. The large trocar site at the umbilicus was closed with use of the 2 stay sutures of 0 Vicryl mentioned above and also a figure of 8 O-Vicry
== END 2022-07-23 17:40 | disposition home or self-care (01) ==
PROVIDERS: PCP Family Medicine; Visit Provider Surgery
PROC: 0FT44ZZ Resection of Gallbladder, Percutaneous Endoscopic Approach (ICD-10-PCS; CPT 47562; principal; 2022-07-23 12:00)
DX: K80.10 Calculus of gallbladder with chronic cholecystitis without obstruction (principal); D22.5 Melanocytic nevi of trunk; D18.01 Hemangioma of skin and subcutaneous tissue; D13.5 Benign neoplasm of extrahepatic bile ducts; I10 Essential (primary) hypertension; J44.9 Chronic obstructive pulmonary disease, unspecified; G47.33 Obstructive sleep apnea (adult) (pediatric); E78.2 Mixed hyperlipidemia; K21.9 Gastro-esophageal reflux disease without esophagitis; F41.8 Other specified anxiety disorders; M85.80 Other specified disorders of bone density and structure, unspecified site; Z79.51 Long term (current) use of inhaled steroids; Z79.82 Long term (current) use of aspirin; Z85.3 Personal history of malignant neoplasm of breast
CPT/HCPCS: 47562; 11401 ×2; 88304; 88305; A9270; J0690; J1100; J1200; J1885; J2405; J2704; J3010; J7030; J7120

== ENCOUNTER 2022-08-06 14:43 | Outpatient (CLI) | payer MEDICARE, SELFPAY ==
--- NOTE | ~2022-08-06 | MM_ITS ---
EXAMINATION: MM screening marco antonio RT w anjelica HISTORY: Screening. Status post left mastectomy. TECHNIQUE: Craniocaudal and mediolateral oblique 3-D tomosynthesis images were obtained and synthetic 2-D images were generated. CAD analysis was submitted and interpreted. COMPARISON: Comparison to multiple prior studies sequentially, with oldest reviewed study dated 10/07. BREAST PARENCHYMAL COMPOSITION: Breast composed of scattered areas of fibroglandular density FINDINGS: There are focal asymmetries medially on CC view and superiorly and inferiorly on MLO view. No discrete mass identified. There are no suspicious calcifications. IMPRESSION: 1. New right breast asymmetries. 2. Additional mammographic views and possible breast ultrasound are recommended. BI-RADS Category 0: Incomplete: Needs additional imaging evaluation. Reviewed, dictated and finalized at location B. [place] ZONE SPECIALIST IMPRESSION: 1. New right breast asymmetries. 2. Additional mammographic views and possible breast ultrasound are recommended . BI-RADS Category 0: Incomplete: Needs additional imaging evaluation.
== END 2022-08-06 14:44 | disposition home or self-care (01) ==
PROVIDERS: PCP Family Medicine; Visit Provider Obstetrics & Gynecology Gynecology
DX: Z12.31 Encounter for screening mammogram for malignant neoplasm of breast (principal); R92.8 Other abnormal and inconclusive findings on diagnostic imaging of breast
CPT/HCPCS: 77063; 77067

== ENCOUNTER 2022-08-09 11:16 | Outpatient (CLI) | payer MEDICARE, SELFPAY ==
--- NOTE | ~2022-08-09 | MMUS_ITS ---
EXAMINATION: MM diagnostic marco antonio RT w anjelica, US breast RT complete HISTORY: Follow-up right breast asymmetry. TECHNIQUE: Additional 3-D tomosynthesis images of the right breast were performed and synthetic 2-D i mages were generated. CAD analysis was submitted and interpreted. High resolution complete right allan st ultrasound was performed. COMPARISON: Comparison to multiple prior studies sequentially, with oldest reviewed study dated 04/16. BREAST PARENCHYMAL COMPOSITION: Breast composed of scattered areas of fibroglandular density FINDINGS: MAMMOGRAPHIC FINDINGS: No discrete mass is identified. Focal asymmetry medially in the right breast on CC view is less appar ent with spot compression views, most likely superimposed fibroglandular tissue. ULTRASOUND: Complete US of all 4 quadrants of the right breast and retroareolar region was reviewed. Normal heter ogeneous echotexture without focal solid or cystic mass. IMPRESSION: 1. Probable benign focal asymmetry medially in the right breast on CC view. No sonographic correlate. 2. Recommend 6 month follow-up diagnostic right mammogram BI-RADS category 3, probably benign findings. Reviewed, dictated and finalized at location B. KER OUT IMPRESSION: 1. Probable benign focal asymmetry medially in the right breast on CC view. No sonographic correlate. 2. Recommend 6 month follow-up diagnostic right mammogram BI-RADS category 3, probably benign findings.
== END 2022-08-09 11:17 | disposition home or self-care (01) ==
LOC: ANHIMG 11:17
PROVIDERS: PCP Family Medicine; Visit Provider Obstetrics & Gynecology Gynecology
DX: R92.8 Other abnormal and inconclusive findings on diagnostic imaging of breast (principal)
CPT/HCPCS: 76641; 77061; 77065; G0279

== ENCOUNTER → 2022-10-17 12:36 | Outpatient (CLI) | payer MEDICARE, SELFPAY ==
--- NOTE | ~2022-10-17 | CT_ITS ---
EXAMINATION: CT abdomen pelvis wo/w con DATE: 10/17/2022 13:37 INDICATION: Gross hematuria TECHNIQUE: Computed tomography (CT) of the abdomen and pelvis was performed without intravenous contr ast. CT of the abdomen and pelvis was then performed with a total of 130 mL Omnipaque-350 intravenous contrast using a double-bolus technique for simultaneous opacification of the renal parenchyma and r enal collecting system. Automated exposure control and iterative reconstruction technique were employ ed. The dose-length product was 1369.80 mGy-cm. COMPARISON: None FINDINGS: Lung bases are clear. No pleural effusion. Heart size is normal. Small pericardial effusion. Small sl iding-type hiatal hernia. The visualized left breast implant. A few scattered small hepatic and splen ic calcification consistent with old granulomatous disease. A few scattered hepatic cysts the largest measuring 2 cm in the left hepatic lobe. Cholecystectomy clips at the gallbladder fossa. No urolithi asis. Symmetric renal parenchymal enhancement with a couple bilateral subcentimeter low-attenuation r enal cysts. Bilateral renal collecting systems and ureters are both opacified in their entirety and d emonstrate no urothelial irregularities or filling defects. Bladder is normal. The uterus is not iden tified and has likely been surgically resected. Bowels including the appendix are normal. No free int raperitoneal gas or fluid. No pathologically enlarged abdominal or pelvic lymphadenopathy. Lumbar lev oscoliosis with moderate to severe lumbar spondylosis. Osteitis pubis. There are few scattered small sclerotic bone islands in the spine and pelvis. IMPRESSION: 1. No etiology for reported gross hematuria. No urolithiasis or concerning renal, ureteral or bladder lesions. Reviewed, dictated and finalized at location A. ATION MONITOR IMPRESSION: 1. No etiology for reported gross hematuria. No urolithiasis or concerning jena l, ureteral or bladder lesions.
[2022-10-17 13:12] LABS: Estimated Glomerular Filt Rate > 60
== END ==
PROVIDERS: PCP Family Medicine; Visit Provider Physician Assistant
DX: R31.0 Gross hematuria (principal)
CPT/HCPCS: 74178; Q9967

== ENCOUNTER 2023-01-24 11:31 | Emergency (ER) | payer MEDICARE, SELFPAY ==
[2023-01-24 11:40] VITALS: BP 132/79; PULSE 89; RESP 16; TEMP 36.7; O2SAT 100
--- NOTE | 2023-01-24 11:41 | ED.EYEPROB ---
HPI - Eye Problem General Chief complaint: Eye Problems Stated complaint: Left Eye Problem Source: patient and RN notes reviewed Limitations: no limitations History of Present Illness HPI Narrative: Patient is a 72-year-old female with complaints left eye pain and redness upon waking. Patient states that when she woke up this morning she noted a small yellow bump in her eye with something in the center. States that she applied a warm compress, and the bump went away. Patient states that she was gardening last night, and felt as if she had gotten something in her eye. She presents with erythema to her left sclera. She reports mild visual disturbance at times with mild blurriness. She reports pain around the left eye. Related Data Home Medications Medication Instructions Recorded Confirmed calcium carbonate 300 mg (750 mg) 300 mg PO QID 05/11/20 01/24/23 chewable tablet (Tums) cholecalciferol (vitamin D3) 50 50 mcg PO DAILY 05/11/20 01/24/23 mcg (2,000 unit) capsule multivit with 1 tablet PO DAILY 05/11/20 01/24/23 zxgssnaw-eifl-YH-lutein 8 mg iron-400 mcg-300 mcg tablet (Centrum Silver Women) aspirin 500 mg tablet 500 mg PO DAILY PRN Pain 05/14/22 01/24/23 Allergies Allergy/AdvReac Type Severity Reaction Status Date / Time omeprazole AdvReac Intermediate diarrhea Verified 01/24/23 11:41 codeine AdvReac Unknown Headache Verified 01/24/23 11:41 Review of Systems Review of Systems: CONSTITUTIONAL: Denies fever, chills, or sweats. EYES: Reports left eye redness, pain, and tearing. ENT: Denies otalgia and sore throat CARDIOVASCULAR: Denies chest pain, palpitations, or edema. RESPIRATORY: Denies cough or dyspnea. GASTROINTESTINAL: Denies abdominal pain, nausea, vomiting, or diarrhea. GENITOURINARY: Denies dysuria or hematuria. SKIN: Denies rash or itching. MUSCULOSKELETAL: Denies back pain, joint pain, or myalgia. NEUROLOGIC: Denies headache, numbness, or weakness. Pertinent positives per HPI. [facility] Past Medical History Medical History Allergic rhinitis Anxiety and depression COPD mixed type Essential hypertension Fatigue GERD with esophagitis GERD without esophagitis Mixed hyperlipidemia Obstructive sleep apnea 12.16.19 sleep study Osteopenia 7.28.21 started fosamax Overweight Surgical History Surgical History H/O total mastectomy of right breast History of cholecystectomy laparoscopic cholecystectomy 07/23/22 History of hysterectomy Family History Family History Mother Family history of cardiac disorder Family history of malignant neoplasm of breast in first degree relative Hypertension Sibling Family history of cardiac disorder Family history of malignant neoplasm of breast in first degree relative Grandparent Family history of malignant neoplasm of breast Other No family history of cardiovascular disease Social History Social History Smoking status: Never smoker Second hand tobacco smoke exposure: No Alcohol intake: never Substance use: never Substance use type: does not use Lack of Transportation: No Lack of Food: Never True Current Housing: I Have Housing Concerned About Future Housing: No Difficulty Paying Gas/Electric Bills: No Difficulty Paying for Meds: No Currently Unemployed: No Education: High School Diploma/GED Difficulty w/ Childcare or Family Care: No Living arrangements: alone Occupation/Education: retired Spiritual care concerns: No Comments At the time of my signature, I reviewed and agree with the nursing past medical, surgical, social, and family history. There is no relevant family history pertinent to the patient complaint. Exam Narrative: GENERAL: This is a well-nourished, well-
[2023-01-24 11:56] VITALS: BP 132/79; PULSE 89; RESP 16; TEMP 36.7; O2SAT 100
== END 2023-01-24 12:00 | disposition home or self-care (01) ==
PROVIDERS: Emergency Provider Nurse Practitioner; PCP Family Medicine
DX: T15.12XA Foreign body in conjunctival sac, left eye, initial encounter (principal); X58.XXXA Exposure to other specified factors, initial encounter; J44.9 Chronic obstructive pulmonary disease, unspecified; I10 Essential (primary) hypertension; K21.9 Gastro-esophageal reflux disease without esophagitis; E78.2 Mixed hyperlipidemia; M85.80 Other specified disorders of bone density and structure, unspecified site; Z90.11 Acquired absence of right breast and nipple
CPT/HCPCS: 99213; A9270; G0463

== ENCOUNTER 2023-02-17 11:09 | Outpatient (CLI) | payer MEDICARE, SELFPAY ==
--- NOTE | ~2023-02-17 | MMUS_ITS ---
EXAMINATION: MM diagnostic marco antonio RT w anjelica, US breast RT limited HISTORY: Six-month follow-up of focal asymmetry in the medial right breast on screening craniocaudal view of 08/06/2022 TECHNIQUE: ML, MLO and CC full field and spot 3-D tomosynthesis images of the right breast were perfo rmed and synthetic 2-D images were generated. CAD analysis was submitted and interpreted. High resolu tion upper inner and lower inner quadrant right breast ultrasound was performed. COMPARISON: 08/09/2022 right diagnostic mammogram and complete right breast ultrasound 08/06/2022 bilateral screening mammogram 03/16/2021 bilateral screening mammogram FINDINGS: MAMMOGRAPHIC FINDINGS: A somewhat ill-defined irregular approximately 5 x 7.5 mm opacity is noted in the mid inner right danna ast. Ultrasound correlation was obtained. ULTRASOUND: 3:00 1 cm from nipple: Irregular and typed parallel hypoechoic solid mass with posterior shadowing, m easuring up to 7 x 8 x 6 mm approximately, very suspicious for malignancy. Ultrasound-guided biopsy i s recommended. IMPRESSION: 1. There are suspicious irregular hypoechoic up to 8 mm mass at 3:00 1 cm from nipple 2. Ultrasound-guided biopsy of right breast 3:00 lesion is recommended BI-RADS category 4, suspicious findings. Reviewed, dictated and finalized at location A. IMPRESSION: 1. There are suspicious irregular hypoechoic up to 8 mm mass at 3:00 1 cm from nipple 2. Ultrasound-guided biopsy of right breast 3:00 lesion is recommended BI-RADS category 4, suspicious findings.
== END 2023-02-17 11:10 | disposition home or self-care (01) ==
LOC: ANHIMG 11:10
PROVIDERS: PCP Family Medicine; Visit Provider Physician Assistant
DX: R92.8 Other abnormal and inconclusive findings on diagnostic imaging of breast (principal)
CPT/HCPCS: 76642; 77061; 77065; G0279

== ENCOUNTER 2023-02-18 11:07 | Outpatient (CLI) | payer MEDICARE, SELFPAY ==
--- NOTE | ~2023-02-18 | MMUS_ITS ---
EXAMINATION: US GUIDED NEEDLE BIOPSY DATE: 02/18/2023 13:13 CDT INDICATION: Irregular antiparallel hypoechoic right breast solid mass with posterior shadowing at 3:0 0 1 cm from nipple demonstrated on 02/17/2023 and limited right breast ultrasound examination TECHNIQUE AND FINDINGS: The risks and potential benefits of the procedure were discussed with the patient, and written inform ed consent was obtained. Timeout procedure was performed. After sterile preparation of the right allan st, 1% lidocaine was utilized for local anesthesia. A 12 G spring-loaded biopsy gun needle was advanced to the edge of the region of interest from an inf erior approach utilizing sonographic guidance. A total of 4 tissue core samples were obtained throug h the lesion. An Inrad tissue marker clip was then placed at the biopsy site. Hemostasis was achieve d. A sterile bandage was applied. The patient tolerated procedure well and there was no evidence of immediate complication. The patien t was given verbal instructions prior to departing from the department. A two view mammogram was perf ormed to document tissue marker clip placement. The tissue samples were submitted to surgical patholo gy for histologic analysis. IMPRESSION: Ultrasound guided biopsy of right 3:00 breast mass with biopsy marker placement. Please refer to path ology report for histologic analysis. Reviewed, dictated and finalized at [facility] Reviewed, dictated and finalized at [facility]. IMPRESSION: Ultrasound guided biopsy of right 3:00 breast mass with biopsy marker placement . Please refer to pathology report for histologic analysis.
== END 2023-02-18 11:08 | disposition home or self-care (01) ==
PROVIDERS: PCP Family Medicine; Visit Provider Physician Assistant
DX: R92.8 Other abnormal and inconclusive findings on diagnostic imaging of breast (principal); D05.11 Intraductal carcinoma in situ of right breast
CPT/HCPCS: 19083; 88305; 88342; 88360; A4648

== ENCOUNTER 2023-08-27 12:29 | Emergency (ER) | payer MEDICARE, SELFPAY ==
--- NOTE | ~2023-08-27 | XR_ITS ---
EXAMINATION: XR ankle LT min 3V DATE: 08/27/2023 12:52 INDICATION: Medial left ankle pain TECHNIQUE: Anteroposterior, oblique, mortise, and lateral views of the left ankle were obtained. COMPARISON: None. FINDINGS: Alignment is normal. No fracture. Mild osteoarthritis with mild nonuniform joint space narrowing at the left ankle joint and multiple joints in the left mid and hindfoot. Small plantar calcaneal spur. No ankle joint effusion. The soft tissues are unremarkable. IMPRESSION: 1. Mild polyarticular osteoarthritis at the left ankle, mid and hindfoot. Reviewed, dictated and finalized at [facility] RATORY MECHANICAL TECHNICIAN
[2023-08-27 12:39] VITALS: BP 133/68; PULSE 69; RESP 16; TEMP 37.4; O2SAT 100
--- NOTE | 2023-08-27 12:39 | ED.GENADULT ---
HPI - General Adult General Chief complaint: Extremity Problem,Nontraumatic Stated complaint: Left Ankle Injury Source: patient, RN notes reviewed and old records reviewed Mode of arrival: ambulatory Limitations: no limitations History of Present Illness HPI narrative: 73-year-old female [facility] with complaint left ankle pain, swelling, bruising this started Friday. Patient denies known injury. Patient states pain started after climbing up and down a 3 prong stepladder multiple times. Patient states has tried ibuprofen with no relief MD complaint: ankle pain Onset (ago): day(s) (5) Location: left and lower extremity Radiation: extremity Severity: moderate Related Data Home Medications Medication Instructions Recorded Confirmed calcium carbonate 300 mg (750 mg) 300 mg PO QID 05/11/20 08/27/23 chewable tablet (Tums) cholecalciferol (vitamin D3) 50 50 mcg PO DAILY 05/11/20 08/27/23 mcg (2,000 unit) capsule dicaifuh-ugeq-eyud 8 mg-folic 400 1 tablet PO DAILY 05/11/20 08/27/23 mcg-K 50 mcg-lutein 300 mcg tablet (Centrum Silver Women) letrozole 2.5 mg tablet 2.5 mg PO DAILY 05/26/23 08/27/23 letrozole 2.5 mg tablet 2.5 mg PO DAILY 08/27/23 08/27/23 Allergies Allergy/AdvReac Type Severity Reaction Status Date / Time codeine AdvReac Unknown Headache Verified 08/27/23 12:45 Review of Systems Constitutional: Constitutional: Reports no additional constitutional complaints, Denies body ache(s), Denies chills, Denies fatigue, Denies fever(s) and Denies headache(s) Eyes: Eyes: Reports no additional eye complaints and Denies blurry vision ENT: Reports system reviewed and no additional complaints, except as documented, Denies vertigo, Denies dizziness, Denies ear discharge, Denies otalgia, Denies facial pain, Denies headache(s), Denies nasal congestion, Denies nasal discharge, Denies sinus pain, Denies sinus pressure and Denies sore throat Cardiovascular: Cardiovascular: Reports no additional cardiovascular complaints, Denies chest pain, Denies chest pain at rest, Denies rapid heart rate and Denies dyspnea Respiratory: Respiratory: Reports no additional respiratory complaints, Denies chest congestion, Denies cough, Denies pain on inspiration, Denies pain with cough and Denies dyspnea Gastrointestinal: Gastrointestinal: Denies abdominal pain, Denies diarrhea, Denies nausea and Denies vomiting Musculoskeletal: Musculoskeletal: Reports arthralgias, Reports joint swelling and Reports tingling Comments: left ankle pain, swelling, bruising Integumentary/Breasts: Skin/Breast: Denies rash Neurologic: Reports system reviewed and no additional complaints, except as documented, Denies vertigo, Denies dizziness and Denies headache(s) Endocrine: Endocrine: Denies fatigue [facility] Past Medical History Medical History Allergic rhinitis Anxiety and depression COPD mixed type Essential hypertension Fatigue GERD with esophagitis GERD without esophagitis Mixed hyperlipidemia Obstructive sleep apnea 12.16. sleep study Osteopenia 7.28.21 started fosamax Overweight Surgical History Surgical History H/O total mastectomy of right breast History of cholecystectomy laparoscopic cholecystectomy 07/23/22 History of hysterectomy Family History Family History Mother Family history of cardiac disorder Family history of malignant neoplasm of breast in first degree relative Hypertension Sibling Family history of cardiac disorder Family history of malignant neoplasm of breast in first degree relative Grandparent Family history of malignant neoplasm of breast Other No family history of cardiovascular disease Social History Social History Social History: Caffeine-tea Smoki
== END 2023-08-27 13:15 | disposition home or self-care (01) ==
PROVIDERS: Emergency Provider Registered Nurse; PCP Family Medicine
DX: S96.912A Strain of unspecified muscle and tendon at ankle and foot level, left foot, initial encounter (principal); X50.3XXA Overexertion from repetitive movements, initial encounter; J44.9 Chronic obstructive pulmonary disease, unspecified; I10 Essential (primary) hypertension; K21.9 Gastro-esophageal reflux disease without esophagitis; E78.2 Mixed hyperlipidemia; M85.80 Other specified disorders of bone density and structure, unspecified site; Z90.13 Acquired absence of bilateral breasts and nipples; F41.9 Anxiety disorder, unspecified; F32.A Depression, unspecified
CPT/HCPCS: 73610; 99213; G0463

== ENCOUNTER 2023-09-19 12:25 | Outpatient (CLI) | payer MEDICARE, SELFPAY ==
--- NOTE | ~2023-09-19 | DEXA_ITS ---
Bone Density Report Name: SEBASTIAN VIVAR Age: 73 Sex: Female Ethnicity: White Date of : 1950 Indication: osteopenia; height loss; cancer; hysterectomy; Referring Provider: KRISTINA WHEELER Study: Bone densitometry was performed. Exam Date: September 19, 2023 Accession number: [id number] Bone Density: Region BMD T-score Z-score Classification AP Spine(L1-L4) 1.004 -0.4 1.9 Normal Femoral Neck (Left) 0.622 -2.0 -0.1 Osteopenia Total Hip (Left) 0.785 -1.3 0.4 Osteopenia Femoral Neck (Right) 0.617 -2.1 -0.1 Osteopenia Total Hip (Right) 0.761 -1.5 0.2 Osteopenia Total Hip Mean 0.773 -1.4 0.3 Osteopenia World Health Organization criteria for BMD impression classify patients as: Normal (T-score at or above -1.0), Osteopenia (T-score between -1.0 and -2.5), or Osteoporosis (T-score at or below -2.5). 10-year Fracture Risk(1): Major Osteoporotic Fracture 13% Hip Fracture 3.1% Reported Risk Factors: [place] (), Neck BMD=0.622, BMI=25.0 (1) FRAX(R) Version 3.08. Fracture probability calculated for an untreated patient. Fracture probability may be lower if the patient has received treatment. Previous Exams: Region Exam Age BMD T-score BMD Change BMD Change Date g/cm2 vs Baseline vs Previous Total Hip(Left) 09/19/2023 73 0.785 -1.3 -0.035 (-4.2%) -0.010 (-1.3%) 03/16/2021 70 0.795 -1.2 -0.024 (-3.0%) -0.037 (-4.5%) 03/29/2019 68 0.833 -0.9 0.013 (1.6%) 0.013 (1.6%) 04/16/2016 65 0.820 -1.0 Total Hip(Right) 09/19/2023 73 0.761 -1.5 -0.030 (-3.8%) -0.049 (-6.1%) 03/16/2021 70 0.810 -1.1 0.019 (2.4%) -0.049 (-5.7%) 03/29/2019 68 0.859 -0.7 0.068 (8.6%)* 0.068 (8.6%)* 04/16/2016 65 0.791 -1.2 *Denotes significance at 95% confidence level, LSC for Total Hip = 0.027 g/cm2 Clinical Information Provided by Patient: Has used the following medications: Vitamin D, Calcium, alendronate Has the following medical conditions: Cancer, Hysterectomy, copd Patient maximum height was 68.0 No regular weight bearing exercise Drinks caffeinated beverages Onset of menses at age 12 Number of children 2 Impression: The patient has low bone mass, based on the Right Femoral Neck T-score. The patient has an estimated ten-year risk of hip fracture of 3.1% and an estimated ten-year risk of major fracture of 13%, based on the WHO FRAX algorithm. The BMD for the Total Hip(Right) decreased, changing by -6.1% since the last DXA exam. Discussion: BONE DENSITY IS LOW AT ONE OR MORE SKELETAL SITES. THE PATIENT'S
== END 2023-09-19 12:26 | disposition home or self-care (01) ==
LOC: ANHIMG 12:26
PROVIDERS: PCP Family Medicine; Visit Provider Family Medicine
DX: Z78.0 Asymptomatic menopausal state (principal); M85.852 Other specified disorders of bone density and structure, left thigh; M85.851 Other specified disorders of bone density and structure, right thigh
CPT/HCPCS: 77080

== ENCOUNTER 2024-01-28 10:54 | Outpatient (CLI) | payer MEDICARE, SELFPAY ==
--- NOTE | ~2024-01-28 | XR_ITS ---
Left Knee Technique: AP, lateral, and sunrise views were obtained. Clinical History: MCL sprain Findings: No fracture or dislocation is seen. Osseous alignment is anatomic. Minimal tricompartmental degenerative change noted. Soft tissues are unremarkable. No joint effusion is seen. Impression: Minimal tricompartmental degenerative change. Reviewed, dictated and finalized at [facility]. Impression: Minimal tricompartmental degenerative change.
== END 2024-01-28 10:55 ==
PROVIDERS: PCP Family Medicine; Visit Provider Family Medicine
DX: M17.12 Unilateral primary osteoarthritis, left knee (principal)
CPT/HCPCS: 73562

== ENCOUNTER 2025-06-01 07:37 | Outpatient (CLI) | payer MEDICARE, SELFPAY ==
--- NOTE | 2025-06-23 11:59 | WPDSLEEPSTUD ---
[facility] Past Medical History Medical History Fatigue Intraductal cancer of right breast History of severe nausea and vomiting after administration of anesthetic agent Osteopenia 7.28.21 started fosamax Overweight GERD with esophagitis Allergic rhinitis COPD mixed type Anxiety and depression Essential hypertension GERD without esophagitis Mixed hyperlipidemia Obstructive sleep apnea 12.16.19 sleep study Surgical History Surgical History H/O breast implant 12/2023 History of cholecystectomy laparoscopic cholecystectomy 07/23/22 H/O total mastectomy of right breast History of hysterectomy Family History Family History Mother Family history of cardiac disorder Family history of malignant neoplasm of breast in first degree relative Hypertension Sibling Family history of cardiac disorder Family history of malignant neoplasm of breast in first degree relative Grandparent Family history of malignant neoplasm of breast Other No family history of cardiovascular disease Social History Social History Social History: Caffeine-tea Smoking status: Never smoker Second hand tobacco smoke exposure: No Alcohol intake: never Substance use: never Substance use type: does not use Lack of Transportation: No Lack of Food: Never True Current Housing: I Have Housing Concerned About Future Housing: No Difficulty Paying Gas/Electric Bills: No Difficulty Paying for Meds: No Currently Unemployed: No Education: High School Diploma/GED Difficulty w/ Childcare or Family Care: No Living arrangements: alone Occupation/Education: retired Spiritual care concerns: No Medications Home Medications ?Medication ?Instructions ?Recorded ?Confirmed ?Type calcium carbonate (Tums) 300 mg PO QID 05/11/20 05/24/25 History hpbdiqpx-ekop-cuga 8 mg-folic 400 1 tablet PO DAILY 05/11/20 05/24/25 History mcg-K 50 mcg-lutein 300 mcg tablet (Centrum Silver Women) letrozole 2.5 mg tablet 2.5 mg PO DAILY 08/27/23 05/24/25 History acetaminophen 325 mg capsule 325 mg PO Q6H PRN 11/30/24 05/24/25 History cetirizine 10 mg capsule (Zyrtec) 10 mg PO DAILY PRN 11/30/24 05/24/25 History guaifenesin 600 mg tablet, 600 mg PO BID 11/30/24 05/24/25 History extended release 12 hr (Mucinex) pseudoephedrine HCl 30 mg tablet 30 mg PO Q4-6H PRN 11/30/24 05/24/25 History (Sudafed) zoledronic acid 4 mg/5 mL 1 mg IV [id number] 11/30/24 05/24/25 History intravenous solution albuterol sulfate 90 mcg/actuation 2 puff inhalation Q4H PRN 03/11/25 05/24/25 Rx aerosol inhaler (Ventolin HFA) shortness of breath or wheezing #6.7 grams azelastine 0.05 % eye drops 1 drp LEFT EYE BID #18 mL 04/12/25 05/24/25 Rx omeprazole 40 mg capsule,delayed 40 mg PO DAILY #90 caps 05/04/25 05/24/25 Rx release tobramycin 0.3 %-dexamethasone 0.1 drp LEFT EYE 05/04/25 05/24/25 History % eye drops,suspension atorvastatin 10 mg tablet See Rx Instructions .Route 05/19/25 05/24/25 Rx .COMPLEX #90 tabs fluticasone fur. 100 mcg-umeclid See Rx Instructions .Route 05/19/25 05/24/25 Rx 62.5 mcg-vilant 25 mcg .COMPLEX #180 blisters inhalat.powder (Trelegy Ellipta) alprazolam 0.25 mg tablet 0.25 mg PO DAILY PRN anxiety #30 05/27/25 Rx tabs escitalopram oxalate 10 mg tablet 10 mg PO DAILY #90 tabs 06/07/25 Rx doxycycline monohydrate 100 mg 100 mg PO BID #20 caps 06/27/25 Rx capsule cpap #1 ea 06/30/25 Rx
[2025-06-30 12:35] VITALS: BMI 25.3
--- NOTE | 2025-06-30 12:35 | WPDSLEEPSTUD ---
Sleep Study Date of Study: 06/01/25 Ordering Provider: Gretchen Anne MD Interpreting Physician: Lula Ramsay DO Sleep Study Type: Split Polysomnogram Height: 1.68 m Weight: 71.214 kg Body Mass Index: 25.3 Neck Circumference (inches): 13.75 [place]: 6 Reason for Sleep Study Loud snoring Sleep History The patient is a 75-year-old female that had a sleep study ordered by her primary care physician for evaluation of sleep apnea. The patient occasionally awakens from sleep short of breath. She occasionally awakens at night with heartburn, belching or cough. She occasionally snores and is frequently loud enough that others complain. She occasionally has trouble sleeping when she has a cold. She rarely wakes up gasping for air throughout the night. She frequently has breathing problems at night observed by herself or others. She denies sweating excessively at night. She rarely has heart palpitations or irregular heartbeats during the night. She occasionally falls asleep during the day but never while driving. She denies sleep paralysis and cataplexy. She denies having trouble at school or work due to sleepiness. He rarely experiences vivid dreamlike scenes upon awakening or falling asleep. She denies feeling afraid of going to sleep. She rarely has nightmares. She occasionally remembers her dreams. She rarely has thoughts racing through her mind. She frequently feels sad, depressed and anxious. She denies having muscular tension. She rarely notices parts of her body jerk. She rarely kicks during the night. She rarely has crawling and aching feelings in her legs and rarely has leg pain during the night. She denies awakening with morning jaw pain. She is occasionally bothered by pain during the day but rarely awakened by pain during the night. She occasionally wakes up feeling stiff in the morning. She occasionally wakes up with sore or achy muscles. She rarely wakes up with pain in the neck, spine and other joints. She goes to bed at 11:00 p.m. every night. It takes her 30 minutes to fall asleep. She wakes up twice throughout the night to urinate and is able to fall back asleep within 10-15 minutes. She wakes at 7:30 a.m. every morning. She typically gets 8 hours of sleep per night. She stays in bed for 15 minutes after waking up in the morning she currently lives alone. She will consume caffeinated beverages within 2 hours of bedtime. She denies engaging in physical exercise before bedtime. She will read watch television before falling asleep. She will take naps in afternoon or the evening but they are not refreshing. She consumes caffeinated tea throughout the day. She denies tobacco, alcohol and recreational drug use. ON LICENSE OF [facility] Past Medical History Medical History Fatigue Intraductal cancer of right breast History of severe nausea and vomiting after administration of anesthetic agent Osteopenia 7. started fosamax Overweight GERD with esophagitis Allergic rhinitis COPD mixed type Anxiety and depression Essential hypertension GERD without esophagitis Mixed hyperlipidemia Obstructive sleep apnea 1216.19 sleep study Surgical History Surgical History H/O breast implant 12/2023 History of cholecystectomy laparoscopic cholecystectomy 07/23/22 H/O total mastectomy of right breast History of hysterectomy Family History Family History Mother Family history of cardiac disorder Family history of malignant neoplasm of breast in first degree relative Hypertension Sibling Family history of cardiac disorder Family history of malignant neoplasm of breast in first degree relative Grandparent Family history of malignant neoplasm of breast Other No family history of cardiovascular disease Social History Social History Social History: Caffeine-tea Smoking status: Never smoker Second hand tobacco smoke exposure: No Alcohol intake: never Substance use: never Substance use type: does not use Lack of Transportation: No Lack of Food: Never True Current Housing: I Have Housing Concerned About Future Housing: No Difficulty Paying Gas/Electric Bills: No Difficulty Paying for Meds: No Currently Unemployed: No Education: High School Diploma/GED Difficulty w/ Childcare or Family Care: No Living arrangements: alone Occupation/Education: retired Spiritual care concerns: No Medications Home Medications ?Medication ?Instructions ?Recorded ?Confirmed ?Type calcium carbonate (Tums) 300 mg PO QID 05/11/20 05/24/25 History [id number] 8 mg-folic 400 1 tablet PO DAILY 05/11/20 05/24/25 History mcg-K 50 mcg-lutein 300 mcg tablet (Centrum Silver Women) letrozole 2.5 mg tablet 2.5 mg PO DAILY 08/27/23 05/24/25 History acetaminophen 325 mg capsule 325 mg PO Q6H PRN 11/30/24 05/24/25 History cetirizine 10 mg capsule (Zyrtec) 10 mg PO DAILY PRN 11/30/24 05/24/25 History guaifenesin 600 mg tablet, 600 mg PO BID 11/30/24 05/24/25 History extended release 12 hr (Mucinex) pseudoephedrine HCl 30 mg tablet 30 mg PO Q4-6H PRN 11/30/24 05/24/25 History (Sudafed) zoledronic acid 4 mg/5 mL 1 mg IV [id number] 11/30/24 05/24/25 History intravenous solution albuterol sulfate 90 mcg/actuation 2 puff inhalation Q4H PRN 03/11/25 05/24/25 Rx aerosol inhaler (Ventolin HFA) shortness of breath or wheezing #6.7 grams azelastine 0.05 % eye drops 1 drp LEFT EYE BID #18 mL 04/12/25 05/24/25 Rx omeprazole 40 mg capsule,delayed 40 mg PO DAILY #90 caps 05/04/25 05/24/25 Rx release tobramycin 0.3 %-dexamethasone 0.1 drp LEFT EYE 05/04/25 05/24/25 History % eye drops,suspension atorvastatin 10 mg tablet See Rx Instructions .Route 05/19/25 05/24/25 Rx .COMPLEX #90 tabs fluticasone fur. 100 mcg-umeclid See Rx Instructions .Route 05/19/25 05/24/25 Rx 62.5 mcg-vilant 25 mcg .COMPLEX #180 blisters inhalat.powder (Trelegy Ellipta) alprazolam 0.25 mg tablet 0.25 mg PO DAILY PRN anxiety #30 05/27/25 Rx tabs escitalopram oxalate 10 mg tablet 10 mg PO DAILY #90 tabs 06/07/25 Rx doxycycline monohydrate 100 mg 100 mg PO BID #20 caps 06/27/25 Rx capsule Sleep Procedure A full night split study using the [employer] multi-channel system recorded the standard physiologic parameters including EEG, EOG, submentalis EMG, anterior tibialis EMG, EKG, body position, nasal and oral airflow using nasal pressure sensor and thermistor.? Respiratory parameters of chest and abdominal movements were recorded with Respiratory Inductance Plethysmography belts. Oxygen saturation was recorded by pulse oximetry. Video monitoring was also performed. Sleep stages, periodic limb movements, and EEG arousals were scored in 30 second epochs according to the criteria of the AASM Scoring Manual. The Apnea-Hypopnea Index was calculated using [facility] guidelines for definition of hypopnea with 4% O2 desaturations while scoring respiratory events. Sleep Architecture During the diagnostic portion of the study, the total recording time was 212.6 minutes. The total sleep time was 137.0 minutes. Sleep latency was 23.1 minutes.? REM sleep was not achieved during this portion of the study. Sleep Efficiency was 64.4%. The patient had 5 awakenings for an awakening index of 2.2. Wake after sleep onset time was 52.5 minutes. The patient spent 10.0 minutes, 7.3% of total sleep time in Stage N1. The patient spent 123.5 minutes, 90.1% in Stage N2. The patient spent 3.5 minutes, 2.6% in Stage N3. The patient spent 0.0 minutes, 0.0% in Stage REM sleep. At 02:13:57 AM the patient was placed on PAP treatment and was titrated at pressures ranging from 5 cm H20 up to 9 cm H20. During the treatment portion of the study, the total recording time was 231.8 minutes.? The total sleep time was 186.5 minutes. Sleep latency was 18.0 minutes. REM latency was 113.0 minutes. Sleep Efficiency was 80.5%. Wake after Sleep Onset time was 27.5 minutes. The patient spent 7.0 minutes, 3.8% of total sleep time in Stage N1. The patient spent 146.0 minutes, 78.3% in Stage N2. The patient spent 0.0 minutes, 0.0% in Stage N3. The patient spent 33.5 minutes, 18.0% in Stage REM. Respiratory Analysis During the diagnostic portion of the study, the patient had 3 hypopneas, 22 obstructive apneas and 5 mixed apneas for an overall Apnea Hypopnea Index of 13.1 events per hour. The REM Apnea Hypopnea Index was 0. The NREM Apnea Hypopnea Index was 13.1. The patient had a Central Apnea Hypopnea Index of 0. There was no evidence of Teofilo-Patel Respirations. During the treatment portion of the study, the patient had 12 hypopneas for an overall Apnea Hypopnea Index of 4.2 events per hour. The REM Apnea Hypopnea Index was 16.1. The NREM Apnea Hypopnea Index was 1.6. The patient had a Central Apnea Hypopnea Index of 0. There was no evidence of Teofilo-Patel Respirations. The patient was started on CPAP 5 cm H2O and titrated to CPAP 9 cm H2O due to hypopneas. The patient was able to fall asleep starting on CPAP 5 cm H2O. The patient was able to achieve REM sleep starting on CPAP 7 cm H2O. On CPAP 7 cm H2O, the patient spent 35.5 minutes in NREM and 21 minutes in REM with 5 hypopneas, resulting in an AHI of 5.3. On CPAP 9 cm H2O, the patient spent 50 minutes in NREM and 12.5 minutes in REM with 7 hypopneas, resulting in an AHI of 7.7. The patient had a sleep efficiency of 91.9% on 7 cm H2O and 78.1% on 9 cm H2O. Arousals During the diagnostic portion of the study, there were a total of 40 arousals for an arousal index of 17.5.? There were 12 respiratory arousals for an index of 5.3. There were 0 periodic limb movement arousals for an index of 0.? There were 4 isolated limb movement arousals for an index of 1.8. There were 24 spontaneous arousals for an index of 10.5. During the treatment portion of the study, there were a total of 18 arousals for an index of 5.8.? There was 1 respiratory arousal for an index of 0.3. There were 0 periodic limb movement arousals for an index of 0.? There was 1 isolated limb movement arousal for an index of 0.3. There were 16 spontaneous arousals for an index of 5.1. Periodic Limb Movements During the diagnostic portion of the study, the patient had 11 isolated limb movements with an index of 4.8. The patient had 4 periodic limb movements with an index of 1.8. The patient had a total of 15 limb movements with a total limb movement index of 6.6. During the treatment portion of the study, the patient had 6 isolated limb movements with an index of 1.9. The patient had 12 periodic limb movements with an index of 3.9. The patient had a total of 18 limb movements with a total limb movement index of 5.8. Oximetry Data During the diagnostic portion of the study, the patient had an average oxygen saturation of 95.1% in wake with a minimum oxygen saturation of 91% and a maximum oxygen saturation of 98%. The patient had an average oxygen saturation of 94.5% in sleep with a minimum oxygen saturation of 86.0% and a maximum oxygen saturation of 98.0%. The patient had 18 oxygen desaturations resulting in an Oxygen Desaturation Index of 7.9. The patient spent 0.4 minutes, 0.2% of total sleep time with an oxygen saturation less than 88%. During the treatment portion of the study, the patient had an average oxygen saturation of 95.7% in wake with a minimum oxygen saturation of 91.0% and a maximum oxygen saturation of 99.0%. The patient had an average oxygen saturation of 94.7% in sleep with a minimum oxygen saturation of 91.0% and a maximum oxygen saturation of 99.0%. The patient had 17 oxygen desaturations resulting in an Oxygen Desaturation Index of 5.5. The patient spent 0 minutes of total sleep time with an oxygen saturation less than 88%. Snoring Profile Mild snoring was present intermittently throughout the baseline portion of the study. The snoring resolved once the patient was titrated to CPAP 7 cm H2O. Cardiac Profile The EKG lead showed normal sinus rhythm with rare PVCs. During the diagnostic portion of the study, the average pulse rate was 69.5 bpm.? The minimum pulse rate was 58.0 bpm. The maximum pulse rate was 88.0 bpm. During the treatment portion of the study, the average pulse rate was 65.5 bpm.? The minimum pulse rate was 57.0 bpm. The maximum pulse rate was 81.0 bpm. EEG Profile No signs of seizure activity seen. Assessment and Plan Assessment and Plan (1) Obstructive sleep apnea: Code(s): G47.33 - Obstructive sleep apnea (adult) (pediatric) Status: Acute Assessment and Plan: In the baseline portion of the study, the patient had an overall AHI of 13.1 with desaturation down to 86%. This is consistent with mild sleep apnea. Due to the patient's COPD, she qualifies for treatment. The patient was started on CPAP 5 cm H2O and titrated to CPAP 9 cm H2O due to hypopneas. I recommend that the patient be prescribed CPAP 7 cm H2O, size small Resmed AirFit [id number] nasal mask, CPAP filters/tubing and heated humidity. This should be used with all episodes of sleep.? Compliance should be reviewed within 31-90 days of starting therapy for usage greater than 4 hours per night greater than 70% of the nights. The patient should be asked about symptoms such as?excessive daytime sleepiness, quality of sleep, decreased nocturia, increased?mental functioning such as memory, mood, and concentration. Data The data obtained during this sleep study is adequate for interpretation. Certification This sleep study has been reviewed by a board certified sleep medicine physician.
== END 2025-06-02 06:55 | disposition home or self-care (01) ==
PROVIDERS: PCP Family Medicine; Visit Provider Family Medicine
DX: G47.33 Obstructive sleep apnea (adult) (pediatric) (principal); G47.10 Hypersomnia, unspecified
CPT/HCPCS: 95811

== ENCOUNTER 2025-08-01 12:14 | Outpatient (CLI) | payer MEDICARE, SELFPAY ==
--- NOTE | ~2025-08-01 | XR_ITS ---
EXAMINATION: XR foot LT min 3V, 08/01/2025 12:15 [employer] HISTORY: chronic bilateral phalange pain, unable to straighten toes COMPARISON: No comparisons available. Findings: No acute fracture or malalignment. No significant degenerative changes. Soft tissues unremarkable. Impression: No acute fracture or malalignment. Reviewed, dictated and finalized at location P. N [employer] Impression: No acute fracture or malalignment.
--- NOTE | ~2025-08-01 | XR_ITS ---
EXAMINATION: XR foot RT min 3V, 08/01/2025 12:15 [employer] HISTORY: chronic bilateral phalange pain, unable to straighten toes COMPARISON: No comparisons available. Findings: No acute fracture or malalignment. No significant degenerative changes. Soft tissues unremarkable. Impression: No acute fracture or malalignment. Reviewed, dictated and finalized at location P. [employer] Impression: No acute fracture or malalignment.
== END 2025-08-01 12:15 | disposition home or self-care (01) ==
LOC: ANHBWCIMG 12:14
PROVIDERS: PCP Family Medicine; Visit Provider Orthopaedic Surgery
DX: M79.672 Pain in left foot (principal); M79.671 Pain in right foot
CPT/HCPCS: 73630